=== PATIENT | female | born 1950 | race Caucasian/White ===

== ENCOUNTER 2020-05-08 14:03 | Outpatient (CLI) | payer MEDICARE, OTHER ==
--- NOTE | 2020-05-08 16:49 | XRAY Report ---
PROCEDURE: Shoulder 3 View RT INDICATIONS: R SHOULDER PAIN TECHNIQUE: 3 views of the shoulder were acquired. COMPARISON: None. FINDINGS: Bones: No fractures or dislocations. No suspicious bony lesions. Visualized ribs appear intact. T here is slight inferior subluxation of the shoulder at the glenohumeral joint space. Moderate acromio clavicular degenerative narrowing. Soft tissues: No suspicious soft tissue calcifications. IMPRESSION: Degenerative changes. No visualized acute fracture or dislocation. However, occult injur y cannot be excluded. Recommend short interval imaging follow-up in 7-10 days as clinically indicated for additional evaluation. Reviewed by: Lisa Palma MD on 05/08/2020 4:48 PM PDT Approved by: Lisa Palma MD on 05/08/2020 4:48 PM PDT Station ID: [id number]
== END 2020-05-08 14:04 | disposition home or self-care (01) ==
LOC: DI 14:03
PROVIDERS: ATTEND Internal Medicine
DX: M19.011 Primary osteoarthritis, right shoulder (principal)

== ENCOUNTER 2020-06-18 14:58 | Outpatient (CLI) | payer MEDICARE, OTHER ==
--- NOTE | 2020-06-25 16:38 | Mammography Report ---
BILATERAL DIGITAL SCREENING MAMMOGRAM 3D/2D: 06/18/2020 CLINICAL: Routine screening. Comparison is made to exams dated: 05/10/2019 mammogram - [facility] [place], 06/02/2018 mammogram - [facility], 01/07/2018 mammogram - [facility] [place], 02/15/2016 mammogram, and 03/20/2015 mammogram - [facility]. The tissue of both breasts is predominantly fatty. There is a biopsy clip in the left breast. No significant masses, calcifications, or other findings are seen in either breast. There has been no significant interval change. IMPRESSION: NEGATIVE There is no mammographic evidence of malignancy. A 1 year screening mammogram is recommended. This exam was interpreted at Station ID: [id number]. NOTE: For mammograms, a report in lay terms will be sent to the patient. Approximately 15% of breast malignancies will not be visualized mammographically. In the management of a palpable breast mass, a negative mammogram must not discourage biopsy of a clinically suspicious lesion. Electronically Signed By: Donato Mitchell M.D. [facility] [place]06/25/2020 08:11:17 ACR BI-RADS Category 1: Negative 3341F PARENCHYMAL PATTERN: (F) - The breast(s) demonstrate(s) diffuse fatty replacement. BI-RADS CATEGORY: (1) - 1 RECOMMENDATION: (ANNUAL) - Recommend routine annual screening mammography. [id number] 1 year screening LATERALITY: (B)
== END 2020-06-18 14:59 | disposition home or self-care (01) ==
LOC: DI.N 14:58
PROVIDERS: ATTEND Internal Medicine
DX: Z12.31 Encounter for screening mammogram for malignant neoplasm of breast (principal)
CPT/HCPCS: 77063; 77067

== ENCOUNTER 2022-11-14 07:48 | Outpatient (CLI) | payer MEDICARE, OTHER ==
--- NOTE | 2022-11-14 09:55 | Mammography Report ---
UNILATERAL LEFT DIGITAL DIAGNOSTIC MAMMOGRAM 3D/2D WITH MAGNIFICATION: 11/14/2022 CLINICAL: Patient returns for 6 month follow up on left breast for calcifications. Comparison is made to exams dated: 04/02/2022 mammogram, 03/06/2022 mammogram, 06/18/2020 mammogram - [facility], 05/10/2019 mammogram - [facility], 06/02/2018 mammogram - [facility], and 01/07/2018 mammogram - [facility]. The left breast is almost entirely fatty (category a/<25% glandular tissue). There is a stable loose group of a few small round calcifications in the left breast at 4 o'clock ant erior depth. No other significant masses or calcifications are seen in the breast. IMPRESSION: PROBABLY BENIGN The calcifications in the left breast are stable and probably benign. A follow-up left mammogram in 6 months is recommended to demonstrate stability. The patient will be due for bilateral mammograms at that same visit. Findings and recommendations were conveyed to the pa tient at time of exam. Based on the Tyrer Cuzick model (a risk assessment model) the patients lifetime risk is 4.2% and her 10 year risk is 3.1%. According to the ACR, ACS, and NCCN guidelines, an annual breast MRI exam tami g with mammogram is recommended if the patients lifetime risk is 20% or greater. This exam was interpreted at Station ID: [id number]. NOTE: For mammograms, a report in lay terms will be sent to the patient. Approximately 15% of breast malignancies will not be visualized mammographically. In the management of a palpable breast mass, a negative mammogram must not discourage biopsy of a clinically suspicious lesion. Electronically Signed By: Clair lemons/:11/14/2022 08:51:27 ACR BI-RADS Category 3: Probably benign 3343F PARENCHYMAL PATTERN: (F) - The breast(s) demonstrate(s) diffuse fatty replacement. BI-RADS CATEGORY: (3) - 3 Mammogram [id number] 6 month follow-up LATERALITY: (L)
== END 2022-11-14 07:49 | disposition home or self-care (01) ==
LOC: DI 07:48
PROVIDERS: ATTEND Internal Medicine
DX: R92.1 Mammographic calcification found on diagnostic imaging of breast (principal)

== ENCOUNTER 2022-11-14 07:49 | Outpatient (CLI) | payer MEDICARE, OTHER ==
--- NOTE | 2022-11-14 09:37 | DEXA Report ---
PROCEDURE: Dexa Spine and/or Hip INDICATIONS: POST MENOPAUSAL TECHNIQUE: Dual energy x-ray absorptiometry (DXA) was performed on a Scaleform System. Regions measur ed are the AP Spine, femoral neck, and if needed forearm. COMPARISON: None. FINDINGS: Lumbar Spine (L1-L3): Bone Mineral Density 0.89 g/cm/cm,T score -2.4, L4 fusion hardware is partially seen Left Femoral Neck: Bone Mineral Density 0.66 g/cm/cm, T score -2.7, Left Hip: Bone Mineral Density 0.78 g/cm/cm,T score -1.8, (T score greater or equal to -1.0: NORMAL) (T score from -1.1 to -2.4: OSTEOPENIA) (T score less than or equal to -2.5 to: OSTEOPOROSIS) Impression: Osteoporosis of the left femoral neck. Osteopenia of the left hip overall, and lumbar spine from L1 t o L3. Elevated fracture risk. Patients with diagnosis of osteoporosis or osteopenia should have regular bone mineral density assess ment. For those eligible for Medicare, routine testing is allowed once every 2 years. Testing frequ ency can be increased for patients who have rapidly progressing disease or for those who are receivin g medical therapy to restore bone mass. Reviewed by: Reynold Boyd MD on 11/14/2022 9:35 AM PDT Approved by: Reynold Boyd MD on 11/14/2022 9:35 AM PDT Station ID: [id number]
== END 2022-11-14 07:50 | disposition home or self-care (01) ==
LOC: DI 07:49
PROVIDERS: ATTEND Internal Medicine
DX: N95.8 Other specified menopausal and perimenopausal disorders (principal); M81.0 Age-related osteoporosis without current pathological fracture; R92.1 Mammographic calcification found on diagnostic imaging of breast

== ENCOUNTER 2023-10-22 06:51 | Day surgery (SDC) | payer MEDICARE, OTHER ==
[2023-10-22] MEDS: LACTATED RINGERS 1,000 ML IV ONE ×2 (07:10→08:57)
[2023-10-22] MEDS: PROPARACAINE 0.5% OPHTH DROPS 15 ML ONE (07:33)
[2023-10-22] MEDS: KETOROLAC 0.45% OPHTH DROPS ONE (07:34)
[2023-10-22] MEDS: PHENYLEPHRINE 2.5% OPHTH 2 ML DROPS LEFTEYE ONE (07:37)
[2023-10-22] MEDS: CYCLOPENTOLATE 1% OPHTH DROPS 2 ML LEFTEYE ONE (07:38)
--- NOTE | 2023-10-22 08:07 | ANESTHESIA ---
Pre-Anesthesia VS, & Labs - Diagnosis left cataract - Procedure left cataract extraction with IOL Vital Signs: Temp Pulse Resp BP Pulse Ox O2 Flow Rate 36.4 C L 70 15 145/93 H 97 10/22/23 07:10 10/22/23 07:10 10/22/23 07:10 10/22/23 07:10 10/22/23 07:10 Height: 5 ft 2 in Weight (kg): 70.4 kg Body Mass Index: 28.3 BMI Classification: Overweight - NPO >8 hours - Is Patient ?: No - Lab Results Current Lab Results: Laboratory Tests 10/22/23 07:28: POC Whole Bld Glucose 147 H Home Medications and Allergies Home Medications: Ambulatory Orders Losartan Potassium 0.5 tab PO DAILY 10/21/23 Semaglutide [Ozempic] 1 mg SQ UD 10/21/23 Acetaminophen [Tylenol] 650 mg PO Q6H PRN 04/29/13 Aspirin [Children's Aspirin] 81 mg PO DAILY 04/29/13 Atorvastatin Calcium [Lipitor] 40 mg PO DAILY 04/29/13 Levothyroxine Sodium [Synthroid] 88 mcg PO DAILY 04/29/13 hydroCHLOROthiazide [Hydrodiuril] 25 mg PO DAILY 04/29/13 Losartan Potassium 0.5 tab PO DAILY 10/21/23 Semaglutide [Ozempic] 1 mg SQ UD 10/21/23 Allergies/Adverse Reactions: Allergies Allergy/AdvReac Type Severity Reaction Status Date / Time "all narcotics" AdvReac Unknown Dizziness Uncoded 10/21/23 14:34 Anes History & Medical History - Anesthetic History Anesthesia Complications: reports: No previous complications - Medical History Cardiovascular: reports: Other Pulmonary: reports: None Gastrointestinal: reports: None Urinary: reports: None Musculoskeletal: reports: None Endocrine/Autoimmune: reports: Type 2 diabetes, Other Skin: reports: Other Smoking Status: Never smoker - Surgical History General: reports: Colonoscopy, Other Eyes Ears Nose Throat (EENT): reports: Other Urologic: Orthopedic: reports: Carpal Tunnel surgery, Other Exam General: Alert, Oriented x3 Dental: WNL Mouth Opening: Greater than 4 Fingerbreadths Neck Mobility: Normal Mallampati classification: II Respiratory: Lungs clear Cardiovascular: Regular rate Plan Anesthesia Type: MAC Consent for Procedure(s) Verified and Reviewed: Yes Code Status: Attempt Resuscitation ASA classification: 2-Mild systemic disease Is this case an emergency?: No
[2023-10-22] MEDS ORDERED: EPINEPHrine 1 MG/ML AMP ONE (08:09)
[2023-10-22] MEDS ORDERED: TRIAMCIN/MOXIFLOX OPHTHALMIC 0.6 ML VIAL IO ONE (08:10)
[2023-10-22] MEDS ORDERED: fentaNYL 100 MCG/2 ML VIAL ONE (08:10)
[2023-10-22] MEDS ORDERED: BRIMONIDINE 0.2% OPHTH DROPS 5 ML ONE (08:10)
[2023-10-22] MEDS ORDERED: MIDAZOLAM 2 MG/2 ML VIAL ONE (08:10)
[2023-10-22] MEDS ORDERED: BSS/LIDOCAINE/EPINEPHRINE 1 ML VIAL ONE (08:10)
[2023-10-22] MEDS ORDERED: TIMOLOL 0.5% OPHTH DROPS ONE (08:10)
[2023-10-22] MEDS: TRIAMCIN/MOXIFLOX OPHTHALMIC 0.6 ML VIAL IO ONE (08:44)
[2023-10-22] MEDS: EPINEPHrine 1 MG/ML AMP IR ONE (08:44)
[2023-10-22] MEDS: BSS/LIDOCAINE/EPINEPHRINE 1 ML SYRINGE IO ONE (08:44)
[2023-10-22] MEDS: VANCOMYCIN OPHTH (TOPICAL) 10 MG/ML SYRINGE TOP ONE (08:44)
[2023-10-22] MEDS: TIMOLOL 0.5% OPHTH DROPS OPTH ONE (08:44)
[2023-10-22] MEDS: BRIMONIDINE 0.2% OPHTH DROPS 5 ML OPTH ONE (08:44)
[2023-10-22] MEDS: PROPARACAINE 0.5% OPHTH DROPS 15 ML EACHEYE ONE (08:44)
--- NOTE | 2023-10-22 09:03 | OPERATIVE REPORT ---
Operative Report - Other Other Information/Narrative: Date of Surgery: 10/22/23 Preop Dx: Visually significant cataract left eye. Cataract surgery was performed in the right eye in 2018 in [place]. Postop Dx: Same Procedure: Phacoemulsification with posterior chamber intraocular lens implant left eye Surgeon: Dr. Emir Novak Anesthesia: Monitored anesthesia care Complications: None Operative Indications: This is a 73-year-old F with progressive vision loss in the left eye due to 3+ nuclear sclerotic, 3+ cortical, and 1+ anterior subcapsular cataract. Best corrected visual acuity was 20/40 with glare to 20/100 vision in the left eye. Indications for surgery were: - Overall decrease in vision - Difficulty seeing words on a computer screen - Difficulty reading - Difficulty seeing words, closed captions, or game scores on TV - Difficulty seeing street signs - Difficulty driving in low light or at night - Difficulty driving at night because of headlights from other vehicles - Difficulty with glare or bright lights in any situation The patient was consented at length concerning the risks and benefits of cataract surgery after which the patient expressed a desire to proceed with surgery. Operative Procedure: The patient was taken into OR#3 and placed under monitored anesthesia care. A surgical time-out was conducted confirming correct patient, correct procedure, and correct surgical site. The patient was given topical anesthesia and then prepped and draped in the usual sterile fashion. The eye was entered at the 6 and 3 oclock positions. Intracameral Shugarcaine was injected into the anterior chamber followed by a dispersive viscoelastic. A continuous-tear curvilinear capsulorhexis was performed. The nucleus was hydrodissected and phacoemulsified. The cortex was evacuated using automated infusion and aspiration. A cohesive viscoelastic was injected into the capsular bag and a 18.5 diopter intraocular lens was inserted into the bag. Infusion and aspiration were used to evacuate the viscoelastic materials from the eye. The wounds were hydrated and the eye inflated to physiologic pressure using balanced salt solution. Approximately 0.25ml of a mixture of triamcinolone and moxifloxacin was injected trans-sclerally into the vitreous in the inferotemporal quadrant using a 30 gauge cannula. An additional 0.25ml of a mixture of triamcinolone and moxifloxacin was injected subconjunctivally in the superior quadrant for infection and inflammation prophylaxis. Wound integrity was checked with Weck-Jesica sponges. The patient was taken from the operating room in good condition and given post-op instructions.
[2023-10-22 09:18] VITALS: BP 142/82; O2SAT 98
--- NOTE | 2023-10-22 09:26 | ANESTHESIA POST OP EVALUATION ---
Anesthesia Post Eval - Post Anesthesia Eval Vitals: Last Vital Signs Temp 36.2 C L 10/22/23 09:10 Pulse 80 10/22/23 09:10 Resp 15 10/22/23 09:10 BP 142/82 H 10/22/23 09:10 Pulse Ox 98 10/22/23 09:10 O2 Flow Rate CV Function Including HR & BP: Stable Pain Control: Satisfactory Nausea & Vomiting: Negative Mental Status: Baseline Respiratory Status: Airway Patent Hydration Status: Satisfactory Anesthesia Complications: None
== END 2023-10-22 06:52 | disposition home or self-care (01) ==
LOC: SDS 06:51
PROVIDERS: ATTEND Ophthalmology
DX: E11.36 Type 2 diabetes mellitus with diabetic cataract (principal); H25.812 Combined forms of age-related cataract, left eye; Z98.41 Cataract extraction status, right eye; Z79.85 Long-term (current) use of injectable non-insulin antidiabetic drugs
CPT/HCPCS: 66984; A9270; J3490; J7120

== ENCOUNTER 2024-05-19 08:42 | Outpatient (CLI) | payer MEDICARE, OTHER ==
--- NOTE | 2024-05-19 10:48 | Mammography Report ---
BILATERAL DIGITAL DIAGNOSTIC MAMMOGRAM 3D/2D WITH MAGNIFICATION: 05/19/2024 CLINICAL: Patient returns for 12 month follow up on left breast for calcifications. Due for bilateral exam. Comparison is made to exams dated: 05/18/2023 mammogram, 11/14/2022 mammogram, 04/02/2022 mammogram, mammogram, 06/18/2020 mammogram - [facility], and 05/10/2019 mammogram - [facility]. The breasts are almost entirely fatty (category a/<25% glandular tissue). There are grouped round calcifications in the left breast upper outer quadrant anterior depth, stable since 04/02/2022. No other significant masses, calcifications, or other findings are seen in either b reast. IMPRESSION: BENIGN Left breast upper outer quadrant round calcifications, stable since 04/02/2022. Given over 2 years of stability of this finding, it is consistent with a benign process. No mammographic evidence of malign leoan. A 1 year screening mammogram is recommended. Findings and recommendations were conveyed to the patient during today's evaluation. Based on the Tyrer Cuzick model (a risk assessment model) the patient's lifetime risk is 4.0% and her 10 year risk is 3.2%. According to the ACR, ACS, and NCCN guidelines, an annual breast MRI exam tami g with mammogram is recommended if the patient's lifetime risk is 20% or greater. This exam was interpreted at Station ID: [id number]. NOTE: For mammograms, a report in lay terms will be sent to the patient. Approximately 15% of breast malignancies will not be visualized mammographically. In the management of a palpable breast mass, a negative mammogram must not discourage biopsy of a clinically suspicious lesion. Electronically Signed By: Verito Cobian M.D., Ph.D. eb/:05/19/2024 09:37:02 ACR BI-RADS Category 2: Benign PARENCHYMAL PATTERN: (F) - The breast(s) demonstrate(s) diffuse fatty replacement. BI-RADS CATEGORY: (2) - 2 RECOMMENDATION: (ANNUAL) - Recommend routine annual screening mammography. [id number] 1 year screening LATERALITY: (B)
== END 2024-05-19 08:43 | disposition home or self-care (01) ==
LOC: DI 08:42
PROVIDERS: ATTEND Internal Medicine
DX: R92.1 Mammographic calcification found on diagnostic imaging of breast (principal)